=== PATIENT | female | born 1960 | race Caucasian/White ===

== ENCOUNTER 2018-07-20 20:36 | Observation (INO) | payer MEDICAID, OTHER ==
[~2018-07-20] VITALS: Ht 157.5 cm; Wt 86.0 kg
[~2018-07-20 20:36] MED LIST: HYDR25TA6 PO; IBUP-1544 PO; METO-319 PO
[2018-07-20] MEDS ORDERED: NITROGLYCERIN 2% 1 GM OINT PKT TD STA (21:09)
[2018-07-20] MEDS ORDERED: ASPIRIN 81 MG TAB PO STA (21:09)
[2018-07-20] MEDS ORDERED: NITROGLYCERIN (SL) 0.4 MG TAB SL PRN (21:30)
[2018-07-20] MEDS ORDERED: POTASSIUM CHLORIDE (SR) 20 MEQ TAB PO STA (22:55)
[2018-07-20] MEDS ORDERED: ONDANSETRON 4 MG INJ IV PRN (23:00)
[2018-07-20] MEDS ORDERED: ACETAMINOPHEN 325 MG TAB PO PRN (23:00)
--- NOTE | 2018-07-20 23:00 | ERD ---
ER Documentation Chief Complaint Chief Complaint chest pain on and off x 1 week HPI Patient is a 58-year-old female with hypertension who presents with chest pain. The patient has had 1 week of chest pain which she describes as uncomfortable and pressure-like. She felt dizziness as well. Left-sided and is associated with left-sided arm pain. The patient had near syncope. The pain comes and goes. She has had belching as well. Upon review of old medical records this is the patient's third visit to the ER since 2012. The patient goes to a local clinic for her care. ROS All systems reviewed and are negative except as per history of present illness. Medications Home Meds Active Scripts Ibuprofen* (Ibuprofen*) 800 Mg Tablet, 800 MG PO Q8, #30 TAB Prov:APARNA TIPTON DO 03/25/15 Hydrochlorothiazide* (Hydrochlorothiazide*) 25 Mg Tab, 25 MG PO DAILY, #30 TAB Prov:APARNA TIPTON DO 03/25/15 Metoprolol Succinate* (Toprol XL*) 50 Mg Tab.er.24h, 50 MG PO DAILY, #30 TAB Prov:APARNA TIPTON DO 03/25/15 Allergies Allergies: Coded Allergies: No Known Allergy (Unverified , 03/25/15) PMhx/Soc History of Surgery: Yes (HYSTERECTOMY, GALLBLADDER, APPENDIX) Hx Cardiac Disorders: Yes (HTN) Hx Alcohol Use: No Hx Substance Use: No Hx Tobacco Use: No Smoking Status: Never smoker FmHx Family History: coronary disease Physical Exam Vitals Vital Signs Date Temp Pulse Resp B/P (MAP) Pulse Ox O2 O2 Flow FiO2 Time Delivery Rate 07/20/18 99.4 110 20 167/90 97 20:53 (115) Physical Exam Const: No acute distress Head: Atraumatic Eyes: Normal Conjunctiva ENT: Normal External Ears, Nose and Mouth. Neck: Full range of motion. No meningismus. Resp: Clear to auscultation bilaterally Cardio: Regular rate and rhythm, no murmurs Abd: Soft, non tender, non distended. Normal bowel sounds Skin: No petechiae or rashes Back: No midline or flank tenderness Ext: No cyanosis, or edema Neur: Awake and alert Psych: Normal Mood and Affect Result Diagram: 07/20/18211707/20/182117 Results 24 hrs Laboratory Tests Test 07/20/18 21:18 White Blood Count 11.5 10^3/ul Red Blood Count 5.21 10^6/ul Hemoglobin 12.7 g/dl Hematocrit 39.2 % Mean Corpuscular Volume 75.2 fl Mean Corpuscular Hemoglobin 24.4 pg Mean Corpuscular Hemoglobin Concent 32.4 g/dl Red Cell Distribution Width 13.5 % Platelet Count 362 10^3/UL Mean Platelet Volume 10.7 fl Immature Granulocytes % 0.300 % Neutrophils % 46.5 % Lymphocytes % 42.1 % Monocytes % 8.6 % Eosinophils % 1.7 % Basophils % 0.8 % Nucleated Red Blood Cells % 0.0 /100WBC Immature Granulocytes # 0.030 10^3/ul Neutrophils # 5.3 10^3/ul Lymphocytes # 4.8 10^3/ul Monocytes # 1.0 10^3/ul Eosinophils # 0.2 10^3/ul Basophils # 0.1 10^3/ul Nucleated Red Blood Cells # 0.0 10^3/ul Sodium Level 140 mmol/L Potassium Level 3.3 mmol/L Chloride Level 100 mmol/L Carbon Dioxide Level 28 mmol/L Anion Gap 12 Blood Urea Nitrogen 16 mg/dl Creatinine 0.54 mg/dl Est Glomerular Filtrat Rate mL/min > 60 mL/min Glucose Level 123 mg/dl Calcium Level 10.2 mg/dl Total Bilirubin 0.1 mg/dl Direct Bilirubin 0.00 mg/dl Indirect Bilirubin 0.1 mg/dl Aspartate Amino Transf (AST/SGOT) 20 IU/L Alanine Aminotransferase (ALT/SGPT) 14 IU/L Alkaline Phosphatase 122 IU/L Troponin I < 0.012 ng/ml Total Protein 8.4 g/dl Albumin 4.5 g/dl Globulin 3.90 g/dl Albumin/Globulin Ratio 1.15 Lipase 293 U/L Current Medications Medications Dose Sig/Madalyn Start Time Status Last (Trade) Ordered Route PRN Stop Time Admin Dose Reason Admin Aspirin 162 mg ONCE STAT 07/20/18 DC 07/20/18 (Aspirin) PO 21:09 07/20/18 21:27 21:10 1 inch ONCE STAT 07/20/18 DC 07/20/18 Nitroglycerin TD 21:09 07/20/18 21:28 21:11 (Nitroglyceri n 2% Oint) 1 tab Q5M UP TO 3 07/20/18 Nitroglycerin DOSES PRN 21:30 SL .CHEST (Nitroglyceri PAIN n (Sl Tab) 0.4 Mg) Potassium 40 meq ONCE STAT 07/20/18 DC Chloride PO 22:55 07/20/18 (Klor-Con 20) 22:56 Ondansetron 4 mg ER BRIDGE 07/20/18 HCl (Zofran PRN IV 23:00 07/21/18 Inj) NAUSEA/VOMITI 22:59 NG 650 mg ER BRIDGE 07/20/18 Acetaminophen PRN PO 23:00 07/21/18 (Tylenol .MILD PAIN 22:59 Tab) 1-3 OR TEMP Procedures/MDM EKG read by me: Rate/Rhythm: Regular rate and rhythm at a normal rate Intervals: Normal Impression: No evidence of ischemia or arrhythmia Chest x-ray read by radiology. Patient is a 58-year-old female with cardiac risk factors for chest pain who presents with chest pain. I am concerned for possible acute coronary syndrome. I doubt pneumonia, pneumothorax, pulmonary embolism, or aortic dissection. The patient will be admitted to Dr. Wilson from the panel team to a telemetry observation bed. The patient was given aspirin and nitroglycerin. Departure Diagnosis: Primary Impression: Chest pain Chest pain type: unspecified Qualified Codes: R07.9 - Chest pain, unspecified Condition: RAMIREZ Araya MD July 20, 2018 23:00
--- NOTE | 2018-07-20 23:38 | HP ---
Date/Time of Note Date/Time of Note DATE: 07/20/18 TIME: 23:38 Assessment/Plan VTE Prophylaxis Pharmacological prophylaxis: heparin Lines/Catheters IV Catheter Type (from Nrsg): Saline Lock Assessment/Plan Assessment/Plan 1. Chest pain: rule out ACS -serial trop -aspirin, as needed nitro -2D-echo 2. HTN: cont home meds, adjust as needed 3. Hypokalemia: replete Result Diagram: 07/20/18211707/20/182117 Results 24hrs Laboratory Tests Test 07/20/18 21:18 White Blood Count 11.5 H Red Blood Count 5.21 Hemoglobin 12.7 Hematocrit 39.2 Mean Corpuscular Volume 75.2 L Mean Corpuscular Hemoglobin 24.4 L Mean Corpuscular Hemoglobin Concent 32.4 Red Cell Distribution Width 13.5 Platelet Count 362 Mean Platelet Volume 10.7 H Immature Granulocytes % 0.300 Neutrophils % 46.5 Lymphocytes % 42.1 Monocytes % 8.6 Eosinophils % 1.7 Basophils % 0.8 Nucleated Red Blood Cells % 0.0 Immature Granulocytes # 0.030 Neutrophils # 5.3 Lymphocytes # 4.8 H Monocytes # 1.0 H Eosinophils # 0.2 Basophils # 0.1 Nucleated Red Blood Cells # 0.0 Sodium Level 140 Potassium Level 3.3 L Chloride Level 100 Carbon Dioxide Level 28 Anion Gap 12 Blood Urea Nitrogen 16 Creatinine 0.54 Est Glomerular Filtrat Rate mL/min > 60 Glucose Level 123 Calcium Level 10.2 Total Bilirubin 0.1 L Direct Bilirubin 0.00 Indirect Bilirubin 0.1 Aspartate Amino Transf (AST/SGOT) 20 Alanine Aminotransferase (ALT/SGPT) 14 Alkaline Phosphatase 122 H Troponin I < 0.012 Total Protein 8.4 H Albumin 4.5 Globulin 3.90 H Albumin/Globulin Ratio 1.15 Lipase 293 HPI/ROS Admit Date/Time Admit Date/Time Hx of Present Illness Patient is a 58 yo female with history of HTN who presented to ER c/o chest Pain x 1 day. Described as pressure-like with radiation to neck area. Also reported associated nausea. that started this morning. trop x 1 neg and EKG without ST-T wave abnormalities. PMH/Family/Social Past Medical History Past Surgical Hx: other (see hpi) Family History Significant Family History: no pertinent family hx Social History Alcohol Use: heavy (2 beers a day) Smoking Status: Never smoker Drug Use: none Exam Constitutional: other (no acute distress) ENMT: nl external ears & nose Neck: supple, non-tender Respiratory: normal air movement Cardiovascular: nl pulses Gastrointestinal: soft Extremities: normal pulses Medications Current Medications Nitroglycerin (Nitroglycerin (Sl Tab) 0.4 Mg) 1 tab Q5M UP TO 3 DOSES PRN SL .CHEST PAIN; Start 07/20/18 at 21:30 Ondansetron HCl (Zofran Inj) 4 mg ER BRIDGE PRN IV NAUSEA/VOMITING; Start 07/20/18 at 23:00; Stop 07/21/18 at 22:59 Acetaminophen (Tylenol Tab) 650 mg ER BRIDGE PRN PO .MILD PAIN 1-3 OR TEMP; Start 07/20/18 at 23:00; Stop 07/21/18 at 22:59 Coded Allergies: No Known Allergy (Unverified , 03/25/15) Social History Smoking Status: Never smoker Exam/Review of Systems Vital Signs Vitals Vital Signs Date Temp Pulse Resp B/P (MAP) Pulse Ox O2 O2 Flow FiO2 Time Delivery Rate 07/20/18 98 17 127/83 97 Room Air 23:36 (98) 07/20/18 99.4 20:53 HARDIK ROYAL MD July 20, 2018 23:38
[2018-07-21] VITALS (7 sets, daily range): BP systolic 112–127; BP diastolic 60–62; PULSE 73–93; RESP 18; Ht 157.5 cm; Wt 86.0 kg
[2018-07-21] MEDS ORDERED: NACL 0.9% 3 ML SYG IV SCH
[2018-07-21] MEDS ORDERED: ACETAMINOPHEN 325 MG TAB PO PRN
[2018-07-21] MEDS ORDERED: ALBUTEROL/IPRATROPIUM (NEB) 3 ML AMP HHN PRN
[2018-07-21] MEDS ORDERED: NITROGLYCERIN (SL) 0.4 MG TAB SL PRN
[2018-07-21] MEDS ORDERED: HYDROCODONE/APAP (5/325) TAB PO PRN
[2018-07-21] MEDS ORDERED: ONDANSETRON 4 MG INJ IV PRN
[2018-07-21] MEDS ORDERED: METOPROLOL (XL) 50 MG TAB PO SCH ×2 (01:14→09:00)
[2018-07-21] MEDS ORDERED: ENOXAPARIN 40 MG/0.4 ML SYG SC SCH (09:00)
[2018-07-21] MEDS ORDERED: ASPIRIN 81 MG TAB PO SCH (09:00)
--- NOTE | 2018-07-21 10:53 | DS ---
Date/Time of Note Date/Time of Note DATE: 07/21/18 TIME: 10:51 Discharge Summary Admission/Discharge Info Admit Date/Time July 20, 2018 at 22:57 Discharge Date/Time July 21, 2018 Discharge Diagnosis Atypical chest pain; hypertension; hyperlipidemia; obesity Patient Condition: Good Procedures Rule out protocol Hx of Present Illness HPI Patient is a 58-year-old female with hypertension who presents with chest pain. The patient has had 1 week of chest pain which she describes as uncomfortable and pressure-like. She felt dizziness as well. Left-sided and is associated wi th left-sided arm pain. The patient had near syncope. The pain comes and goes. She has had belching as well. Upon review of old medical records this is the patient's third visit to the ER since 2012. The patient goes to a local clinic for her care. Hx of Present Illness Patient is a 58 yo female with history of HTN who presented to ER c/o chest Pain x 1 day. Described as pressure-like with radiation to neck area. Also reported associated nausea. that started this morning. trop x 1 neg and EKG without ST-T wave abnormalities. Hospital Course Charming 58-year-old female. She was admitted and had multiple negative troponins serially. On my review of her history she describes a sensation of chest pain that is pinpoint that lasts seconds and comes and goes. She is at this time without symptomatology. Given the above I believe that this would be appropriate for discharge and outpatient evaluation. Patient assures that she will follow-up with her primary care physician within the next week. Home Meds Active Scripts Ibuprofen* (Ibuprofen*) 800 Mg Tablet, 800 MG PO Q8, #30 TAB Prov:APARNA TIPTON DO 03/25/15 Hydrochlorothiazide* (Hydrochlorothiazide*) 25 Mg Tab, 25 MG PO DAILY, #30 TAB Prov:APARNA TIPTON DO 03/25/15 Metoprolol Succinate* (Toprol XL*) 50 Mg Tab.er.24h, 50 MG PO DAILY, #30 TAB Prov:APARNA TIPTON DO 03/25/15 Follow-up Plan Follow-up with primary care physician through [facility], within the next week for outpatient cardiac evaluation Primary Care Provider Not On Staff Doctor Time spent on discharge: > 30 minutes Pending Labs Laboratory Tests Test 07/20/18 21:18 07/21/18 03:20 07/21/18 09:08 White Blood Count 11.5 9.9 10^3/ul (4.8-10.8) 10^3/ul (4.8-10.8) Red Blood Count 5.21 4.92 10^6/ul (4.20-5.40) 10^6/ul (4.20-5.40 ) Hemoglobin 12.7 12.0 g/dl (12.0-16.0) g/dl (12.0-16.0) Hematocrit 39.2 % (37.0-47.0) 36.9 % (37.0-47.0) Mean Corpuscular 75.2 75.0 Volume fl (82.0-101.0) fl (82.0-101.0) Mean Corpuscular 24.4 pg (29.0-33.0) 24.4 Hemoglobin pg (29.0-33.0) Mean Corpuscular 32.4 32.5 Hemoglobin Concent g/dl (32.0-37.0) g/dl (32.0-37.0) Red Cell 13.5 % (11.5-14.5) 13.9 % (11.5-14.5) Distribution Width Platelet Count 362 346 10^3/UL (140-415) 10^3/UL (140-415) Mean Platelet 10.7 fl (7.4-10.4) 10.8 fl (7.4-10.4) Volume Immature 0.300 0.300 Granulocytes % % (0.001-0.429) % (0.001-0.429) Neutrophils % 46.5 % (39.0-77.0) 53.3 % (39.0-77.0) Lymphocytes % 42.1 % (15.0-51.0) 35.0 % (15.0-51.0) Monocytes % 8.6 % (0.0-11.0) 8.8 % (0.0-11.0) Eosinophils % 1.7 % (0.0-7.0) 1.6 % (0.0-7.0) Basophils % 0.8 % (0.0-2.0) 1.0 % (0.0-2.0) Nucleated Red Blood 0.0 0.0 Cells % /100WBC (0.0-0.0) /100WBC (0.0-0.0) Immature 0.030 0.030 Granulocytes # 10^3/ul (0.0-0.031) 10^3/ul (0.0-0.031 ) Neutrophils # 5.3 5.2 10^3/ul (1.6-7.5) 10^3/ul (1.6-7.5) Lymphocytes # 4.8 3.5 10^3/ul (0.8-2.9) 10^3/ul (0.8-2.9) Monocytes # 1.0 0.9 10^3/ul (0.3-0.9) 10^3/ul (0.3-0.9) Eosinophils # 0.2 0.2 10^3/ul (0.0-0.5) 10^3/ul (0.0-0.5) Basophils # 0.1 0.1 10^3/ul (0.0-0.1) 10^3/ul (0.0-0.1) Nucleated Red Blood 0.0 0.0 Cells # 10^3/ul (0.0-0.0) 10^3/ul (0.0-0.0) Sodium Level 140 142 mmol/L (135-144) mmol/L (135-144) Potassium Level 3.3 3.6 mmol/L (3.5-5.1) mmol/L (3.5-5.1) Chloride Level 100 mmol/L (97-110) 102 mmol/L (97-110) Carbon Dioxide 28 mmol/L (21-31) 30 mmol/L (21-31) Level Anion Gap 12 (5-13) 10 (5-13) Blood Urea 16 mg/dl (7-20) 14 mg/dl (7-20) Nitrogen Creatinine 0.54 0.60 mg/dl (0.44-1.00) mg/dl (0.44-1.00) Est Glomerular > 60 mL/min (>60) > 60 mL/min (>60) Filtrat Rate mL/min Glucose Level 123 mg/dl (70-220) 125 mg/dl (70-220) Calcium Level 10.2 10.0 mg/dl (8.4-10.2) mg/dl (8.4-10.2) Total Bilirubin 0.1 mg/dl (0.2-1.3) 0.2 mg/dl (0.2-1.3) Direct Bilirubin 0.00 0.00 mg/dl (0.00-0.20) mg/dl (0.00-0.20) Indirect Bilirubin 0.1 mg/dl (0-1.1) 0.2 mg/dl (0-1.1) Aspartate Amino 20 IU/L (15-46) 18 IU/L (15-46) Transf (AST/SGOT) Alanine 14 IU/L (13-69) 13 IU/L (13-69) Aminotransferase (A LT/SGPT) Alkaline 122 IU/L (42-121) 102 IU/L (42-121) Phosphatase Troponin I < 0.012 < 0.012 < 0.012 ng/ml (0.000-0.120) ng/ml (0.000-0.120 ng/ml (0.000-0.120 ) ) Total Protein 8.4 g/dl (6.1-8.1) 8.1 g/dl (6.1-8.1) Albumin 4.5 g/dl (3.3-4.9) 4.1 g/dl (3.3-4.9) Globulin 3.90 g/dl (1.3-3.2) 4.00 g/dl (1.3-3.2) Albumin/Globulin 1.15 1.02 Ratio Lipase 293 U/L (23-300) Hemoglobin A1c 6.0 % (0-5.9) Magnesium Level 1.9 mg/dl (1.7-2.5) Creatine Kinase 41 IU/L (23-200) 40 IU/L (23-200) Creatine Kinase 0.7 0.7 Index Creatinine Kinase 0.27 0.27 MB (Mass) ng/ml (0.0-2.4) ng/ml (0.0-2.4) Triglycerides 186 mg/dl (0-149) Level Cholesterol Level 207 mg/dl (100-200) LDL Cholesterol, 126 mg/dl Calculated HDL Cholesterol 44 mg/dl (37-92) Cholesterol/HDL 4.7 RATIO Ratio Thyroid Stimulating 0.780 Hormone (TSH) MIU/L (0.465-4.680 ) LUC CROOKS MD July 21, 2018 10:53
--- NOTE | 2018-07-21 10:54 | PDOCDIS ---
Discharge Instructions DIAGNOSIS Discharge Diagnosis Atypical chest pain; hypertension; hyperlipidemia; obesity CONDITION [id number] Patient Condition: [id number] Good HOME CARE INSTRUCTIONS: [id number] Diet Instructions: [id number] Reduced Calorie ACTIVITY: [id number] Activity Restrictions: [id number] No Restrictions FOLLOW UP/APPOINTMENTS Follow-up Plan Follow-up with primary care physician through [facility], within the next week for outpatient cardiac evaluation LUC CROOKS MD July 21, 2018 10:54
[2018-07-21] MEDS ORDERED: ATOR10TA65 PO (10:55)
[2018-07-21] MEDS ORDERED: ASPI-831 PO (10:55)
[2018-07-21] MEDS ORDERED: NITR0.4T32 SL (10:55)
--- NOTE | 2018-07-21 17:35 | RADRPT ---
Echocardiogram Report Patient Name: VIANCA TRISTANPatient ID: [id number] : 1960 (58y 2m)Study Date: 07/21/2018 8:16:07 AM Gender: FAccession #: [id number] Tech: ELISA Manuel [facility] Location: [facility] Ref.Physician: HARDIK ROYAL Height(Cm): BSA: Weight(Kg): Quality: AdequateAccount #: Procedures: Echocardiographic Report: Transthoracic echocardiogram with complete 2D, M-Mode, and doppler examination. Indications: Chest Pain. Measurements: 2D/M Mode Doppler Measurement Value Normal Range Measurement Value Normal Range LVIDd 2D 4.1 [ 3.8 - 5.2 ] cm AV Peak Lalito 1.3 [ 100.0 - 170.0 ] cm/se c LVIDs 2D 3.0 [ 2.2 - 3.5 ] cm AV Peak PG 7.0 [ 2.0 - 9.0 ] mmHg LVPWd 2D 0.9 [ 0.6 - 0.9 ] cm LVOT Peak Lalito 1.0 [ 70.0 - 110.0 ] cm/sec IVSd 2D 0.8 [ 0.6 - 0.9 ] cm LVOT Peak PG 4.0 [ 2.0 - 6.0 ] mmHg AoR Diam 2D 2.5 [ 2.3 - 3.1 ] cm MV E Peak Lalito 0.5 [ 60.0 - 130.0 ] cm/sec EDV 2D 75.5 [ 46.0 - 106.0 ] ml MV A Peak Lalito 0.4 [ 100.0 - 120.0 ] cm/se c ESV 2D 34.7 [ 14.0 - 42.0 ] ml MV E/A 1.2 [ 0.8 - 1.5 ] ratio EF 2D 54.0 [ 54.0 - 74.0 ] percent MV PHT 66.0 [ 20.0 - 100.0 ] msec LA Dimen 2D 3.0 [ 2.7 - 3.8 ] cm MV Decel Time 225 [ 104 - 258 ] msec MV Decel [place] 2 Lat E` Lalito 0.1 [ 10.0 - 15.0 ] cm/sec Lateral E/E` 5.6 [ 1.0 - 2.0 ] ratio Med E` Lalito 0.1 cm/sec MV E/A 1.2 [ 0.8 - 1.5 ] ratio MVA PHT 3.3 [ 2.0 - 4.0 ] cm2 Findings: Left Ventricle: Lower limits of normal systolic function. Normal left ventricular cavity size. Normal left ventricular wall thickness. Ejection fraction is visually estimated at 50 %. Tissue Doppler/Mitral Doppler indices are within normal limits. Right Ventricle: Normal right ventricular size. Normal right ventricular systolic function. Left Atrium: The left atrium is normal in size. Right Atrium: The right atrium is normal in size. Atrial Septum: Normal atrial septum. Ventricular septum: Normal/intact ventricular septum. Mitral Valve: Normal appearance of the mitral valve. Trace mitral regurgitation. Aortic Valve: Normal appearance of the aortic valve. No aortic regurgitation. Tricuspid Valve: Normal appearance of the tricuspid valve. Unable to obtain RVSP due to minimal presence of tricuspid regurgitation. There is trace tricuspid regurgitation. Pulmonic Valve: Pulmonic valve not well visualized. No evidence of pulmonic regurgitation. Pericardium: Normal pericardium with no significant pericardial effusion. Aorta: Normal aortic root. IVC: Normal size and normal respiratory collapse consistent with normal right atrial pressure. Conclusions: Lower limits of normal systolic function. Normal left ventricular cavity size. Normal left ventricular wall thickness. Ejection fraction is visually estimated at 50 %. Tissue Doppler/Mitral Doppler indices are within normal limits. Normal appearance of the mitral valve. Trace mitral regurgitation. Normal appearance of the tricuspid valve. Unable to obtain RVSP due to minimal presence of tricuspid regurgitation. There is trace tricuspid regurgitation. Electronically Signed By: Oh Irwin 2018-07-21 17:34:58 PDT
[2018-07-21] MEDS ORDERED: ATORVASTATIN 10 MG TAB PO SCH (21:00)
== END 2018-07-21 12:55 | disposition home or self-care (01) ==
LOC: E/R 20:36 → 6WM 22:57
PROVIDERS: ADMIT Internal Medicine; ATTEND Internal Medicine
DX: R07.89 Other chest pain (principal); I10 Essential (primary) hypertension; E78.5 Hyperlipidemia, unspecified; E66.9 Obesity, unspecified; Z68.34 Body mass index [BMI] 34.0-34.9, adult; E87.6 Hypokalemia
CPT/HCPCS: 36415; 71045; 80053; 80061; 82550; 82553; 83036; 83690; 83735; 84443; 84484; 85025; 93005; 93306; Z7500; Z7502; Z7610; G0378